=== PATIENT | male | born 1955 | race Caucasian/White ===

== ENCOUNTER 2024-08-17 13:50 | Emergency (ER) | payer MEDICARE, BC ==
[~2024-08-17] VITALS: Ht 175.3 cm; Wt 83.8 kg
[2024-08-17 13:50] VITALS: BP 165/79; PULSE 70; RESP 16; TEMP 98.3; O2SAT 97
== END 2024-08-17 17:20 | disposition home or self-care (01) ==
LOC: ER 13:51
DX: S83.92XA Sprain of unspecified site of left knee, initial encounter (principal); X58.XXXA Exposure to other specified factors, initial encounter; Y93.89 Activity, other specified; Y92.89 Other specified places as the place of occurrence of the external cause; Y99.8 Other external cause status
CPT/HCPCS: 29505; 73564; 99283